=== PATIENT | female | born 1945 | race Two or more races ===

== ENCOUNTER 2021-08-23 14:49 | Inpatient (IN) | payer MEDICARE ==
[~2021-08-23] VITALS: Ht 154.9 cm; Wt 51.2 kg
[~2021-08-23 14:49] MED LIST: VANCOMYCIN 750 MG in IV NORMAL SALINE 250ML 250 ML IV SCH
[2021-08-23] MEDS ORDERED: traMADol 50 MG TABLET PO PRN (17:15)
[2021-08-23] MEDS ORDERED: oxyCODONE/APAP 10/325 1 TAB TABLET PO PRN (17:15)
[2021-08-23] MEDS ORDERED: POLYETHYLENE GLYCOL 3350 17 GM PACKET. PO PRN (17:15)
[2021-08-23] MEDS ORDERED: VANCOMYCIN PER PHARMACY MC PRN (17:15)
[2021-08-23] MEDS ORDERED: PIP/TAZO PER PHARMACY MC PRN (17:15)
[2021-08-23] MEDS ORDERED: MAGNESIUM HYDROXIDE 2,400 MG/30 ML ORAL.SUSP. PO PRN (17:15)
[2021-08-23] MEDS ORDERED: MAG HYDROX/ALUMINUM HYD/SIMETH 30 ML ORAL.SUSP PO PRN (17:15)
[2021-08-23] MEDS ORDERED: hydrOXYzine 25 MG TABLET PO PRN (17:15)
[2021-08-23] MEDS ORDERED: CYCLOBENZAPRINE 10 MG TABLET. PO PRN (17:15)
[2021-08-23] MEDS ORDERED: PSYLLIUM HUSK (SUGAR FREE) 1 PKT PACKET PO PRN (17:15)
[2021-08-23] MEDS ORDERED: METHYL SALICYLATE/MENTHOL TOPICAL CREAM 57GM TUBE. TP PRN (17:15)
[2021-08-23] MEDS ORDERED: PIPERACILLIN/TAZOBACTAM 3.375 GM in IV NORMAL SALINE 50ML 50 ML IV ONE (17:15)
[2021-08-23] MEDS ORDERED: fentaNYL PF VIAL 100 MCG/2 ML VIAL IVP PRN (17:30)
[2021-08-23] MEDS ORDERED: PIPERACILLIN/TAZOBACTAM 4.5 GM in IV DEXTROSE 5% 100ML 100 ML IV SCH (18:00)
[2021-08-23 19:00] VITALS: BP 158/69
[2021-08-23] MEDS: PIPERACILLIN/TAZOBACTAM 3.375 GM in IV NORMAL SALINE 50ML 50 ML IV SCH (19:30)
--- NOTE | 2021-08-23 20:16 | NUR ---
Routine consults called to Dr. Boone, Ortho electrician constructor supervisor, and vascular.
[2021-08-23] MEDS: METOPROLOL TART IMMED RELEASE 50 MG TABLET. PO SCH (20:53)
[2021-08-23] MEDS: POTASSIUM CHLORIDE 20 MEQ TABLET.ER. PO SCH (20:53)
[2021-08-23] MEDS: LACTOBACILLUS RHAMNOSUS GG 1 CAPSULE. PO SCH (20:53)
[2021-08-23] MEDS ORDERED: diphenhydrAMINE 50 MG/ML VIAL IVP PRN (21:15)
[2021-08-23] MEDS ORDERED: VANCOMYCIN 750 MG in IV NORMAL SALINE 250ML 250 ML IV SCH (22:00)
[2021-08-23 23:00] VITALS: BP 137/77
[2021-08-23] MEDS: HYDROCORTISONE SOD SUCC/PF 100 MG/2 ML VIAL. IVP SCH (23:07)
[2021-08-23] MEDS: FAMOTIDINE 20 MG/2 ML VIAL IVP SCH (23:07)
[2021-08-24] MEDS ORDERED: VANCOMYCIN 750 MG in IV NORMAL SALINE 250ML 250 ML IV SCH
[2021-08-24 03:00] VITALS: BP 129/80
[2021-08-24] MEDS: PIPERACILLIN/TAZOBACTAM 3.375 GM in IV NORMAL SALINE 50ML 50 ML IV SCH ×2 (04:19)
[2021-08-24] MEDS: HYDROCORTISONE SOD SUCC/PF 100 MG/2 ML VIAL. IVP SCH ×3 (06:33→22:00)
[2021-08-24 07:00] VITALS: BP 137/86
[2021-08-24] MEDS ORDERED: DEXTROSE 50% 25 GM / 50ML DISP.SYRIN. IV PRN (08:00)
[2021-08-24] MEDS ORDERED: IV DEXTROSE 5% 250 ML BAG. IV PRN (08:00)
[2021-08-24] MEDS: buPROPion XL 150 MG TAB.ER.24H. PO SCH (08:01)
[2021-08-24] MEDS: METOPROLOL TART IMMED RELEASE 50 MG TABLET. PO SCH ×2 (08:01→22:31)
[2021-08-24] MEDS: LACTOBACILLUS RHAMNOSUS GG 1 CAPSULE. PO SCH ×2 (08:01→22:31)
[2021-08-24] MEDS: OMEGA-3 FATTY ACIDS/FISH OIL 1,000 MG CAPSULE. PO SCH ×2 (08:01→15:24)
[2021-08-24] MEDS: POTASSIUM CHLORIDE 20 MEQ TABLET.ER. PO SCH ×3 (08:02→22:31)
[2021-08-24] MEDS: QUEtiapine 25 MG TABLET. PO SCH ×2 (08:02→18:05)
[2021-08-24] MEDS: LISINOPRIL 20 MG TABLET PO SCH (08:02)
[2021-08-24] MEDS: INSULIN LISPRO 300 UNITS/3 ML VIAL. SQ SCH ×3 (08:15→18:09)
--- NOTE | 2021-08-24 08:26 | PDOC2 ---
CONSULT Date of Consult Date of Consult DATE: 08/24/21 TIME: 08:18 Identification/Chief Complaint Chief Complaint Bilateral toe ulcerations History of Present Illness Reason for Visit: Is a very pleasant 76-year-old female who has mal perforans ulcers on the tips of her right and left first toes. These appear clean and have healthy granulation tissue. Patient states that these gradually rubbed from her shoes. She also states that she dropped something on her toes. She has been receiving wound care and primarily changing her dressings at home on her own. She states that they looked much worse than they do now prior to treatment. She was seen a [facility] and then transferred here for evaluation. She states she is prediabetic. Past Medical History Cardiovascular: HTN, Hyperlipidemia CENTRAL NERVOUS SYSTEM: Periperal neuropathy Musculoskeletal: Osteoarthritis Past Surgical History Past Surgical History: Other (Multiple spine surgeries) Family History Family History: Hypertension Social History ALCOHOL: none Drugs: None Lives: with Family Current Medications Current Medications Current Medications Cyclobenzaprine HCl (Flexeril) 10 mg PRN Q8HRS PRN PO MUSCLE SPASMS Last administered on 08/24/21at 08:01; Start 08/23/21 at 17:15 Lactobacillus Rhamnosus (Culturelle) 1 cap BID PO Last administered on 08/24/21at 08:01; Start 08/23/21 at 21:00 Lisinopril (Prinivil) 20 mg DAILY PO Last administered on 08/24/21at 08:02; Start 08/24/21 at 09:00 Al Hydroxide/Mg Hydroxide (Mylanta Plus Xs) 15 ml PRN AFTMEAL PRN PO HEARTBURN / GAS; Start 08/23/21 at 17:15 Magnesium Hydroxide (Milk Of Magnesia) 2,400 mg PRN DAILY PRN PO CONSTIPATION; Start 08/23/21 at 17:15 Menthol/Methyl Salicylate (Bengay Greaseless Cream) 1 mone PRN DAILY PRN TP MUSCLE PAIN; Start 08/23/21 at 17:15 Metoprolol Tartrate (Lopressor) 50 mg BID PO Last administered on 08/24/21at 08:01; Start 08/23/21 at 21:00 Fish Oil (Fish Oil) 1,000 mg BID@0800,1500 PO Last administered on 08/24/21at 08:01; Start 08/24/21 at 08:00 Penicillin G Benzathine (Bicillin L-A) 2,400,000 unit QTH@2100 IM ; Start 08/26/21 at 21:00; Stop 09/02/21 at 21:01 Piperacillin Sod/ Tazobactam Sod (Zosyn Per Pharmacy) 1 each PRN DAILY PRN MC SEE COMMENTS; Start 08/23/21 at 17:15; Stop 08/24/21 at 04:16; Status DC Piperacillin Sod/ Tazobactam Sod 3.375 gm/Sodium Chloride 50 ml @ 100 mls/hr 1X ONCE IV ; Start 08/23/21 at 17:15; Stop 08/23/21 at 17:44; Status UNV Polyethylene Glycol (miraLAX PACKET) 17 gm PRN DAILY PRN PO CONSTIPATION; Start 08/23/21 at 17:15 Potassium Chloride (Klor-Con) 20 meq TID PO Last administered on 08/24/21at 08:02; Start 08/23/21 at 21:00 Psyllium Hydrophilic Mucilloid (Metamucil Fiber Packet) 1 pkt PRN DAILY PRN PO CONSTIPATION; Start 08/23/21 at 17:15 Quetiapine Fumarate (SEROquel) 12.5 mg BIDWMEALS PO Last administered on 08/24/21at 08:02; Start 08/24/21 at 08:00 Vancomycin HCl (Vanco Per Pharmacy) 1 each PRN DAILY PRN MC SEE COMMENTS Last administered on 08/23/21at 17:59; Start 08/23/21 at 17:15; Stop 08/24/21 at 04:16; Status DC Vancomycin HCl 750 mg/Sodium Chloride 250 ml @ 250 mls/hr Q24H IV ; Start 08/23/21 at 22:00; Status Cancel Bupropion HCl (Wellbutrin Xl) 300 mg DAILY PO Last administered on 08/24/21at 08:01; Start 08/24/21 at 09:00 Hydroxyzine HCl (Atarax) 25 mg PRN TID PRN PO ITCHING; Start 08/23/21 at 17:15 Oxycodone/ Acetaminophen (Percocet 10/325) 2 tab PRN Q8HRS PRN PO PAIN Last administered on 08/23/21at 18:17; Start 08/23/21 at 17:15 Tramadol HCl (Ultram) 50 mg PRN Q6HRS PRN PO PAIN Last administered on 08/24/21at 08:07; Start 08/23/21 at 17:15 Fentanyl Citrate (Fentanyl 2ml Vial) 50 mcg PRN Q4HRS PRN IVP PAIN Last administered on 08/23/21at 18:13; Start 08/23/21 at 17:30; Stop 08/24/21 at 04:40; Status DC Piperacillin Sod/ Tazobactam Sod 4.5 gm/Dextrose 100 ml @ 200 mls/hr Q6HRS IV ; Start 08/23/21 at 18:00; Status Cancel Vancomycin HCl (Vancomycin Trough Level) 1 each 1X ONCE MC ; Start 08/23/21 at 21:30; Stop 08/23/21 at 21:31; Status DC Piperacillin Sod/ Tazobactam Sod 3.375 gm/Sodium Chloride 50 ml @ 100 mls/hr Q6 HRS IV ; Start 08/23/21 at 19:30; Stop 08/24/21 at 04:20; Status DC Diphenhydramine HCl (Benadryl) 50 mg PRN Q6HRS PRN IVP ITCHING Last administered on 08/23/21at 21:27; Start 08/23/21 at 21:15 Hydrocortisone Sodium Succinate (Solu-CORTEF) 100 mg Q8HRS IVP Last administered on 08/24/21at 06:33; Start 08/23/21 at 22:00 Famotidine (Pepcid Vial) 20 mg QHS IVP Last administered on 08/23/21at 23:07; Start 08/23/21 at 22:00 Vancomycin HCl 750 mg/Sodium Chloride 250 ml @ 250 mls/hr Q12H IV ; Start 08/23/21 at 00:00; Status Cancel Vancomycin HCl 750 mg/Sodium Chloride 250 ml @ 250 mls/hr Q12H IV ; Start 08/24/21 at 00:00; Stop 08/24/21 at 04:20; Status DC Insulin Human Lispro (HumaLOG) 0-5 UNITS TIDWMEALS SQ Last administered on 08/24/21at 08:15; Start 08/24/21 at 08:00 Dextrose (Dextrose 50%-Water Syringe) 12.5 gm PRN Q15MIN PRN IV SEE COMMENTS; Start 08/24/21 at 08:00; Status UNV Dextrose (Iv Dextrose 5%) 250 ml PRN Q15MIN PRN IV SEE COMMENTS; Start 08/24/21 at 08:00 Allergies Allergies: Coded Allergies: adhesive tape (Verified Allergy, Intermediate, 08/23/21) morphine (Verified Allergy, Intermediate, 08/23/21) procaine (Verified Allergy, Intermediate, 08/23/21) ROS Skin: Yes Other (Bilateral first toe ulcers) Physical Exam General: Alert, Oriented X3, Cooperative HEENT: Atraumatic, PERRLA, EOMI, Mucous membr. 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) Skin: Other (Superficial lesions involving the right and left first toe, healthy granulation tissue, no evidence of bony exposure, no purulent drainage, no cellulitis, no malodor) Neuro: Strength at 5/5 X4 ext, Cranial nerves 3-12 NL, Other (Bilateral peripheral neuropathy) Psych/Mental Status: Mental status NL, Mood NL MUSCULOSKELETAL: No swelling, No muscular tenderness noted, Full range of motion without pain Vitals VITALS Vital Signs Date Time Temp Pulse Resp B/P (MAP) Pulse Ox O2 Delivery O2 Flow Rate FiO2 08/24/21 08:07 Room Air 08/24/21 08:02 89 137/86 08/24/21 03:00 97.9 18 96 97.9 Labs Labs Laboratory Tests Test 08/23/21 21:46 08/23/21 21:55 Glucose (Fingerstick) 264 mg/dL (70-99) Vancomycin Level Trough 7.0 mcg/mL (10.0-20.0) Vancomycin Last Dose Date Vancomycin Last Dose Time 2199 Laboratory Tests Test 08/23/21 21:46 08/23/21 21:55 Glucose (Fingerstick) 264 mg/dL (70-99) Vancomycin Level Trough 7.0 mcg/mL (10.0-20.0) Vancomycin Last Dose Date Vancomycin Last Dose Time 2199 Assessment/Plan Assessment/Plan Bilateral first toe ulcerations--overall the patient's ulcerations appear healthy with good granulation tissue. She has intact arterial blood flow to both lower extremities with palpable pulse exam. There is no evidence of bony exposure. There is no purulent drainage or cellulitis. I have a low suspicion for osteomyelitis of her toes. There are no studies within our system. If th ere is a significant question regarding osteomyelitis, I would recommend a MRI of both feet. I believe local wound care will be sufficient to heal these wounds. Patient can be seen and followed up in the wound care clinic. There is no urgency to any type of surgical therapy at this time. All questions were answered the patient satisfaction at the bedside. I also discussed the plan with the nursing staff at the bedside. I would avoid moist bandages including Xeroform as this does tend to macerate the surrounding skin. Donald Hallman DO, DONALD MARQUES DO Aug 24, 2021 08:26
[2021-08-24 09:41] LABS: BASO % 0 % (0-3); EOS % 0 % (0-3); HEMATOCRIT 32.3 % (36.0-47.0); HEMOGLOBIN 10.4 g/dL (12.0-15.5); LYMPH % 9 % (24-48); MEAN CORPUSCULAR HEMOGLOBIN 28 pg (25-35); MEAN CORPUSCULAR HGB CONC 32 g/dL (31-37); MEAN CORPUSCULAR VOLUME 85 fL (79-100); MONO # 0.1 x10^3/uL (0.0-1.1); MONO % 1 % (0-9); NEUT # 9.7 x10^3/uL (1.8-7.7); NEUT % 89 % (31-73); PLATELET COUNT 324 x10^3/uL (140-400); RED BLOOD COUNT 3.78 x10^6/uL (3.50-5.40); RED CELL DISTRIBUTION WIDTH 13.8 % (11.5-14.5); WHITE BLOOD COUNT 10.8 x10^3/uL (4.0-11.0)
[2021-08-24 09:59] LABS: ALBUMIN 3.3 g/dL (3.4-5.0); ALBUMIN/GLOBULIN RATIO 1.1 (1.0-1.7); C-REACTIVE PROTEIN 93.2 mg/L (0-3.3); CALCIUM 9.1 mg/dL (8.5-10.1); CREATININE 0.9 mg/dL (0.6-1.0); POTASSIUM 4.2 mmol/L (3.5-5.1); TOTAL BILIRUBIN 0.4 mg/dL (0.2-1.0); TOTAL PROTEIN 6.3 g/dL (6.4-8.2)
--- NOTE | 2021-08-24 10:02 | HP ---
DATE OF SERVICE: 08/24/2021 ADMIT DATE: 08/23/2021 HISTORY OF PRESENT ILLNESS: The patient is a 76-year-old female patient who was originally admitted to [facility] as a referral from [facility] in [place] on account of worsening self-care deficit, cursing daughters. She is not taking her medications, soaked in urine and agitated, confused, disoriented with poor intake and loss of weight for about 17 pounds. Her daughter stated there was gradual decline in her mother's ability to take care of herself but over the last 4-6 months she is not cleaning her dishes, she has been soiling herself repeatedly. In March, her son and has refused to talk to her before his . She also has developed bilateral great toe diabetic foot ulcers, which she has declined to care for. She was seen by Dr. Chele Aguilar, who ordered bilateral arterial Doppler ultrasound, but the patient refused to continue with care. She was in fact admitted to [facility] for inpatient psychiatric stabilization and we did actually an x-ray of her both feet, which showed that the patient has no fracture or bony destruction of the right big toe; however, she does have erosions with bony destruction of the tuft of the distal phalanx of the left great toe suggestive of osteomyelitis and the patient therefore transferred to [address] [place] [address] and started her on IV antibiotic in the form of vancomycin and Zosyn and I did manage to get a copy of the arterial Doppler ultrasound done at [facility]. The arterial Doppler ultrasound showed the patient has moderate degree of scattered plaque throughout the arterial system of the right lower extremity. There is occlusion of the mid superficial femoral artery. The right superficial femoral artery with reconstitution of flow in the distal superficial femoral artery. She has monophasic arterial waveforms within the distal superficial femoral artery throughout the dorsalis pedis. She does have also elevated peak systolic velocity within the right common femoral artery at 335.3 cm per second. She also has moderate degree of scattered plaque throughout the arterial system of the left lower extremity; however, she has no significant arterial stenosis in the left lower extremity and given she has osteomyelitis of the distal left big toe, the patient was transferred to [facility] to consult the Infectious Disease specialist as well as the vascular surgeon and perhaps the orthopedic surgeon. The patient does complain of pain in her feet and she is getting tramadol and oxycodone; however, last night, she wanted also IV pain medication. We did give her fentanyl and she somehow developed a generalized pruritic rash therefore I stopped all the fentanyl as well as IV antibiotic and was treated symptomatically with hydrocortisone, Benadryl and Pepcid. PAST MEDICAL HISTORY: Significant for chronic back pain, hypertension, diabetic polyneuropathy, diabetes mellitus, recurrent falls. She also has possible peripheral arterial disease. PAST SURGICAL HISTORY: Unremarkable. ALLERGIES: SHE IS ALLERGIC TO MORPHINE AND NOVOCAIN WELL TAPE. CODE STATUS: Full. DIET: She is in a regular ADA diet. FAMILY HISTORY: Positive for Alzheimer's disease in her mother. SOCIAL HISTORY: The patient lives alone. She has 3 daughters. She does not smoke, drink alcohol or use recreational drugs. MEDICATIONS: She was transferred to 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 She was also on Wellbutrin-XL 300 mg daily, lisinopril 20 mg once a day. She is on Humalog insulin as insulin sliding scale before meals, quetiapine fumarate 12.5 mg twice a day, fish oil 1000 mg once a day, famotidine 20 mg IV once a day, hydrocortisone sodium 100 mg every 8 hours, diphenhydramine 50 mg IV every 6 hours, potassium chloride 20 mEq 3 times a day, metoprolol tartrate 50 mg twice a day, Lactobacillus rhamnosus 1 capsule twice a day, tramadol 50 mg every 6 hours, oxycodone/acetaminophen one tablet every 8 hours, hydroxyzine 25 mg 3 times a day, Metamucil 1 packet daily, polyethylene glycol 17 grams daily p.r.n. for constipation. She is also on Bengay applied topically as needed, milk of magnesia 30 mL daily p.r.n. for constipation, Mylanta 15 mL after meals and as needed, cyclobenzaprine 10 mg every 8 hours as needed. She was also on vancomycin 750 mg every 12 hours and piperacillin/tazobactam 3.375 grams IV every 6 hours. She developed severe erythematous pruritic skin rash after she received the fentanyl, although the action did not happen immediately. I was not sure as to what has caused the allergy and therefore, I held all the antibiotics as well as her fentanyl. PHYSICAL EXAMINATION: GENERAL: When I examined her this morning, she was resting slightly propped up in bed, in no apparent respiratory distress. She was somewhat pale, but not jaundiced or cyanosed. No lymphadenopathy, no thyromegaly, no jugular venous distention. No lower limb edema. VITAL SIGNS: Her heart rate was 89, blood pressure was 137/86, temperature 97.9, respiratory rate was 18 and oxygen saturation was 96% on room air. HEAD, EYES, EARS, NOSE, AND THROAT: Normocephalic, atraumatic. NECK: Supple. HEART: Showed normal first and second heart sounds. No gallop or murmur. CHEST: Clear to auscultation, no crepitation or rhonchi. ABDOMEN: Scaphoid, soft, nontender. NEUROLOGIC: She was awake, alert, responding appropriately. All cranial nerves intact. She moves extremities without difficulty. She has wounds in big toes, both feet are covered with dressing. The erythematous skin rash has completely resolved when I saw her this morning. LABORATORY DATA: Her most recent lab work showed a white cell count 9700, hemoglobin 11, hematocrit 33, MCV 87 and platelet count of 331,000. Serum sodium was 139, potassium 4.1, chloride 106, bicarbonate 25, anion gap of 8, BUN 20, creatinine 0.7. Estimated GFR was 81 mL per minute. Her glucose 176, calcium was 8.8. Total bilirubin, AST, ALT, alkaline phosphatase were normal. Total protein was 6.2, albumin was 3.1. The x-ray of her both toe showed that the patient has no fracture or bony destruction. The right great toe has erosions with bony destruction at the tuft, distal phalanx of the left great toe suggestive of osteomyelitis. She was treated with IV antibiotic at [facility]; however, because of the allergic reaction last night, I held the antibiotic as well as IV fentanyl. I have consulted the Infectious Disease specialist, the vascular surgeon as well as orthopedic surgeon. We will decide the further management accordingly. MORGAN/LEONARDA JAIN: Gómez TID: [id number]
[2021-08-24 11:00] VITALS: BP 139/69
[2021-08-24 15:00] VITALS: BP 176/80
[2021-08-24] MEDS: AMOXICILLIN/K CLAV 875/125MG TABLET. PO SCH ×2 (15:23→22:30)
[2021-08-24] MEDS: traMADol 50 MG TABLET PO PRN ×2 (15:24→19:33)
[2021-08-24 19:00] VITALS: BP 131/65
[2021-08-24] MEDS: FAMOTIDINE 20 MG/2 ML VIAL IVP SCH (22:30)
[2021-08-24 23:00] VITALS: BP 135/72
[2021-08-25] VITALS (7 sets, daily range): BP systolic 121–185; BP diastolic 67–91
--- NOTE | 2021-08-25 02:11 | CONS ---
DATE OF CONSULTATION: 08/24/2021 REQUESTING PHYSICIAN: Nay Goldsmith MD REASON FOR CONSULTATION: Toe wound, question osteomyelitis. HISTORY OF PRESENT ILLNESS: This is a 76-year-old female who was transferred from [facility]. The patient was admitted to [facility]. She came from [facility] in [place]. The patient apparently started having toe problem. The patient was seen by primary care and was put on some . The patient says it gotten worse, hence then she went to the hospital. Then from [place] the patient was transferred to [facility] and the patient was then seen by Dr. Goldsmith for this wound and started on antibiotics. The patient's erosion of the bone destruction of the tuft of the distal phalanx on the x-ray suggestive of osteomyelitis, hence the patient was transferred here. The patient does have dorsalis pedis weak, but palpable. The patient denies any fever, denies any nausea, vomiting, diarrhea, chest pain, shortness of breath, abdominal pain, urinary symptoms or bowel symptoms. PAST MEDICAL HISTORY: Positive for hypertension, diabetes, diabetic neuropathy, chronic back problem. SOCIAL HISTORY: Negative for smoking, alcohol, illicit drug use. ALLERGIES: No known drug allergies. CURRENT MEDICATIONS: Reviewed. REVIEW OF SYSTEMS: As in HPI. All other systems reviewed are negative. PHYSICAL EXAMINATION: GENERAL: Alert, oriented female, not in any distress. VITAL SIGNS: Stable, afebrile. HEENT: NAD. NECK: Supple, no JVP, no lymphadenopathy. LUNGS: Clear. HEART: S1, S2, regular. ABDOMEN: Soft, nontender, no organomegaly. EXTREMITIES: No edema, cyanosis. SKIN: Unremarkable. The patient's left big toe has some loss of tissue, but this all looks clean. There is no tunneling. There is no deep wound to the bone. There is no clinical evidence for osteomyelitis and even the wound is clean enough that it is not showing any signs of infection. Right big toe also has a small distal part that is gone with ulcer, which is not deep enough to have an osteomyelitis or any tunneling. LABORATORY DATA: White count is 10,000. ESR is 21. BUN and creatinine is normal. IMPRESSION: Right and left both big toe ulcers. No clinical evidence for osteomyelitis and no even right now evidence for any infection, may have improved some redness or drainage that has been reported from the antibiotics. RECOMMENDATIONS: I would change antibiotics to p.o. Augmentin for possible discharge. Thank you very much, Dr. Goldsmith, for giving me opportunity to participate in this patient's care. LUDMILA/CECY/JARVIS DR: LUDMILA/cristino TID: [id number]
[2021-08-25] MEDS: HYDROCORTISONE SOD SUCC/PF 100 MG/2 ML VIAL. IVP SCH (05:59)
[2021-08-25] MEDS: traMADol 50 MG TABLET PO PRN ×3 (06:05→20:18)
[2021-08-25] MEDS: QUEtiapine 25 MG TABLET. PO SCH ×2 (08:00→17:09)
[2021-08-25] MEDS: buPROPion XL 150 MG TAB.ER.24H. PO SCH (08:51)
[2021-08-25] MEDS: AMOXICILLIN/K CLAV 875/125MG TABLET. PO SCH ×2 (08:52→20:10)
[2021-08-25] MEDS: LACTOBACILLUS RHAMNOSUS GG 1 CAPSULE. PO SCH ×2 (08:52→20:10)
[2021-08-25] MEDS: POTASSIUM CHLORIDE 20 MEQ TABLET.ER. PO SCH ×3 (08:52→20:10)
[2021-08-25] MEDS: METOPROLOL TART IMMED RELEASE 50 MG TABLET. PO SCH ×2 (08:53→20:09)
[2021-08-25] MEDS: OMEGA-3 FATTY ACIDS/FISH OIL 1,000 MG CAPSULE. PO SCH ×2 (08:53→13:11)
[2021-08-25] MEDS: LISINOPRIL 20 MG TABLET PO SCH (08:53)
[2021-08-25] MEDS: INSULIN LISPRO 300 UNITS/3 ML VIAL. SQ SCH ×3 (08:58→17:00)
--- NOTE | 2021-08-25 09:00 | PDOC ---
Provider Note Date of Service: DATE: 08/25/21 TIME: 08:54 Provider Note Provider Note Vascular: Attempted to see pt a couple time this am and she was in the bathroom/not available/out of room. Please see Dr. Hallman consultation from yesterday for details. She has bilateral toe wounds that are clean and do not need debridement at this time. I reviewed her duplex from outside facility and discussed with Dr. Hallman. She has elevated PSV of right common femoral artery of 335.3 cm/s, short segment occlusion of the mid SFA with reconstitution of flow in the distal right SFA with peak systolic velocity of 227.9 cm/s. Monophasic flows distally. Left leg with diffuse scattered disease with less significant findings. Her duplex is on her chart. I have also faxed this to our office to have in our EMR records. I discussed with Dr. Hallman, she did have palpable DP pulses, therefore there is no urgency but we will see her in follow-up for ABIs and further evaluation regarding her circulation. I will arrange this follow-up in 3-4 weeks and we will plan to see her then. There is no indication for further vascular work-up or intervention acutely while she is an inpatient. We will sign off and see in follow-up. Please call with further questions or concerns. Justicifation of Admission Dx: Justifications for Admission: Justification of Admission Dx: Comment: (per hospitalist) MICKI DOUGLAS Aug 25, 2021 09:00
[2021-08-25] MEDS: ASCORBIC ACID 500 MG TABLET PO SCH (10:31)
[2021-08-25] MEDS: MULTIVITAMIN with MINERAL TABLET. PO SCH (10:31)
--- NOTE | 2021-08-25 12:26 | PDOC ---
Infectious Disease Note Subjective Subjective pt is feeling good ROS ROS no n/v/d/sob Vital Sign Vital Signs Vital Signs Date Time Temp Pulse Resp B/P (MAP) Pulse Ox O2 Delivery O2 Flow Rate FiO2 08/25/21 11:00 98.1 92 18 142/88 (106) 98 Room Air 98.1 Physical Exam PHYSICAL EXAM GENERAL: Alert, oriented female, not in any distress. VITAL SIGNS: Stable, afebrile. HEENT: NAD. NECK: Supple, no JVP, no lymphadenopathy. LUNGS: Clear. HEART: S1, S2, regular. ABDOMEN: Soft, nontender, no organomegaly. EXTREMITIES: No edema, cyanosis. SKIN: Unremarkable. The patient's left big toe has some loss of tissue, but this all looks clean. There is no tunneling. There is no deep wound to the bone. There is no clinical evidence for osteomyelitis and even the wound is clean enough that it is not showing any signs of infection. Right big toe also has a small distal part that is gone with ulcer, which is not deep enough to have an osteomyelitis or any tunneling. Labs Lab Laboratory Tests Test 08/24/21 12:41 08/24/21 17:44 08/25/21 08:52 08/25/21 11:31 Glucose (Fingerstick) 215 mg/dL (70-99) 189 mg/dL (70-99) 303 mg/dL (70-99) 582 mg/dL (70-99) Micro Microbiology 08/24/21 Gram Stain - Final, Resulted 08/24/21 Aerobic and Anaerobic Culture - Preliminary, Resulted Objective Assessment IMPRESSION: Right and left both big toe ulcers. No clinical evidence for osteomyelitis and no evidence for any infection now, may have improved some redness or drainage that has been reported from the antibiotics. Latent syphilis HTN DM with neuropathy Plan Plan of Care po antibiotics ok to d/c MAYDA ZARATE MD Aug 25, 2021 12:26
[2021-08-25] MEDS ORDERED: INSULIN LISPRO 300 UNITS/3 ML VIAL. SQ SCH (13:00)
[2021-08-25] MEDS ORDERED: INSULIN LISPRO 300 UNITS/3 ML VIAL. SQ ONE (13:15)
[2021-08-25] MEDS: FAMOTIDINE 20 MG/2 ML VIAL IVP SCH (20:10)
[2021-08-26] VITALS (7 sets, daily range): BP systolic 146–168; BP diastolic 73–108
[2021-08-26] MEDS: buPROPion XL 150 MG TAB.ER.24H. PO SCH (08:32)
[2021-08-26] MEDS: MULTIVITAMIN with MINERAL TABLET. PO SCH (08:32)
[2021-08-26] MEDS: ASCORBIC ACID 500 MG TABLET PO SCH (08:32)
[2021-08-26] MEDS: POTASSIUM CHLORIDE 20 MEQ TABLET.ER. PO SCH ×3 (08:33→20:50)
[2021-08-26] MEDS: OMEGA-3 FATTY ACIDS/FISH OIL 1,000 MG CAPSULE. PO SCH ×2 (08:33→14:53)
[2021-08-26] MEDS: LISINOPRIL 20 MG TABLET PO SCH (08:34)
[2021-08-26] MEDS: LACTOBACILLUS RHAMNOSUS GG 1 CAPSULE. PO SCH ×2 (08:34→20:49)
[2021-08-26] MEDS: METOPROLOL TART IMMED RELEASE 50 MG TABLET. PO SCH ×2 (08:35→20:50)
[2021-08-26] MEDS: AMOXICILLIN/K CLAV 875/125MG TABLET. PO SCH ×2 (08:35→20:49)
[2021-08-26] MEDS: QUEtiapine 25 MG TABLET. PO SCH ×2 (08:37→17:00)
[2021-08-26] MEDS: traMADol 50 MG TABLET PO PRN ×2 (08:44→17:17)
[2021-08-26] MEDS: INSULIN LISPRO 300 UNITS/3 ML VIAL. SQ SCH ×3 (08:56→17:28)
--- NOTE | 2021-08-26 13:50 | PDOC ---
Infectious Disease Note Subjective Subjective pt is feeling good ROS ROS no n/v/d/ Vital Sign Vital Signs Vital Signs Date Time Temp Pulse Resp B/P (MAP) Pulse Ox O2 Delivery O2 Flow Rate FiO2 08/26/21 11:00 98.0 72 16 146/88 (107) 98 Room Air 98.0 Physical Exam PHYSICAL EXAM GENERAL: Alert, oriented female, not in any distress. VITAL SIGNS: Stable, afebrile. HEENT: NAD. NECK: Supple, no JVP, no lymphadenopathy. LUNGS: Clear. HEART: S1, S2, regular. ABDOMEN: Soft, nontender, no organomegaly. EXTREMITIES: No edema, cyanosis. SKIN: Unremarkable. The patient's left big toe has some loss of tissue, but this all looks clean. There is no tunneling. There is no deep wound to the bone. There is no clinical evidence for osteomyelitis and even the wound is clean enough that it is not showing any signs of infection. Right big toe also has a small distal part that is gone with ulcer, which is not deep enough to have an osteomyelitis or any tunneling. Labs Lab Laboratory Tests Test 08/25/21 16:53 08/25/21 20:39 08/26/21 07:36 08/26/21 10:56 Glucose (Fingerstick) 73 mg/dL (70-99) 201 mg/dL (70-99) 177 mg/dL (70-99) 200 mg/dL (70-99) Micro Microbiology 08/24/21 Gram Stain - Final, Resulted 08/24/21 Aerobic and Anaerobic Culture - Preliminary, Resulted Objective Assessment IMPRESSION: Right and left both big toe ulcers. No clinical evidence for osteomyelitis and no evidence for any infection now, may have improved some redness or drainage that has been reported from the antibiotics. Latent syphilis HTN DM with neuropathy Plan Plan of Care po antibiotics ok to d/c MAYDA ZARATE MD Aug 26, 2021 13:50
--- NOTE | 2021-08-26 14:00 | NUR ---
Wound/Ostomy Care Wound Type/Assessment: Patient seen per wound care follow up. See wound assessment. Patient was in at [facility] by wound care previously. Patient has DFU to the right great toe and to the left great toe. Wounds cleansed, assessed, measured, and pictured. Patient is refusing to allow wound care to apply any type of recommended dressing, other than gauze pads and tape. Patient is from [facility] and will be returning following discharge from hospital. Treatment Recommendations/Plan: Recommendations for Iodoflex and cover with gauze and tape. Change every 2-3 days. However patient again refusing. So wounds redressed with gauze and tape only per her request. RN notified. Education provided: Patient educated on wound care dressing changes and dressings, but refusing information at this time. Patient also stated she likes to "walk around bare footed with grandchildren" when she is at home. We explained to patient the risks of being diabetic and walking around without the proper foot russell and patient again refusing to allow any education. Offloading surface/device: Patient is ambulatory and does not wish to inquire about diabetic foot wear. Recommended Referrals/Tests: N/A Discharge Recommendations for dressings: Dressing change instructions left in room. Wound care will sign off at this time as patient does want wound care and will be discharging to [facility]. Wound care will follow up there if needed next week. RN at bedside to continue care.
--- NOTE | 2021-08-26 19:51 | NUR ---
Report called to Yas at [facility] [phone]. Informed her of follow up appointments,Vascular surgery follow up: 09/22/21 at 8:50 am for GODFREY's to assess circulation in legs first, then office visit with Dr. Hallman to follow. [id number] [address], [place] [id number]. [phone]. Yas stated she would place on discharge info sheet upon Patient admitting today. Yas denies any questions, Yas aware of transport by [facility] scheduled for 2129.
[2021-08-26] MEDS: FAMOTIDINE 20 MG/2 ML VIAL IVP SCH (20:51)
[2021-08-26] MEDS ORDERED: PENICILLIN G BENZATHINE LA 2,400,000 UNIT/4 ML DISP.SYRIN. IM SCH (21:00)
--- NOTE | 2021-08-26 21:15 | NUR ---
Patient informed of transfer to [place], [place] lock out. HS medications given. Patient understands transfer. [facility] here and transporting Patient with all belongings to transfer to [place]. Yas at [place] informed Patient on way to [place], and that night medications given. Addendum: 08/26/21 at 2208 by ROLAN WORLEY RN Transfer packet given to transport person.
--- NOTE | 2021-08-26 21:20 | NUR ---
Call to Yas to inform her Night medications given.
--- NOTE | 2021-08-27 10:42 | PN ---
DATE: 08/26/2021 SUBJECTIVE: The patient is resting, slightly propped up in bed, in no apparent distress. On questioning her, denied any complaint. The nursing staff did not voice any concerns. She states that she had an uneventful night. She was accepted to be discharged back to [facility]; however, we are waiting for the COVID-19 by PCR before she can be transferred there. OBJECTIVE: GENERAL: When I questioning her, she feels generally well. Denied any complaint. When I examined her, she was pale, cachectic. No jaundice, cyanosis or thyromegaly. No jugular venous distention. No lower limb edema. VITAL SIGNS: Her heart rate was 90, blood pressure was 155/97, temperature was 98, respiratory rate was 18 and oxygen saturation was 98% on room air. HEAD, EYES, EARS, NOSE, AND THROAT: Normocephalic, atraumatic. NECK: Supple. HEART: Normal first and second heart sounds. No gallop, rub or murmur. CHEST: Clear to auscultation, no crepitation or rhonchi. ABDOMEN: Scaphoid, soft, nontender. NEUROLOGIC: She was grossly intact. She does have wounds on both big toes; however, there is no evidence of osteomyelitis. She was seen in consultation, both by the Infectious Disease specialist and also the vascular surgeon. She was started on oral Augmentin for infection with the toes and the vascular surgeon did not recommend any intervention for the time being. LABORATORY DATA: Showed a white cell count of 10,800, hemoglobin 10, hematocrit 32, MCV 85 and platelet count of 324,000. Her chemistry showed a serum sodium of 138, potassium 4.2, chloride 103, bicarbonate 24, anion gap of 11, BUN 20, creatinine 0.9. Estimated GFR was 61 mL per minute. Her glucose was 117, calcium was 9.1. Total bilirubin, AST, ALT, alkaline phosphatase were normal. C-reactive protein was 93. Total protein was 6.3, albumin was 3.3. ASSESSMENT: 1. Bilateral big toe infection without evidence of osteomyelitis. 2. Peripheral vascular disease. 3. Hypertension. 4. Diabetic polyneuropathy. 5. Chronic back pain. PLAN: Obviously to wait for the results of PCR. If it is negative, the patient can be discharged to [facility] at [facility]. MORGAN/KIT/AMI DR: Gómez TID: [id number]
== END 2021-08-26 21:15 | disposition short-term general hospital (02) | DRG 300 ==
LOC: 4 NORTH 14:49
PROVIDERS: ADMIT Internal Medicine; ATTEND Internal Medicine
DX: E11.51 Type 2 diabetes mellitus with diabetic peripheral angiopathy without gangrene (principal); E44.0 Moderate protein-calorie malnutrition; E11.42 Type 2 diabetes mellitus with diabetic polyneuropathy; E11.621 Type 2 diabetes mellitus with foot ulcer; L97.529 Non-pressure chronic ulcer of other part of left foot with unspecified severity; L97.519 Non-pressure chronic ulcer of other part of right foot with unspecified severity; A53.0 Latent syphilis, unspecified as early or late; E78.5 Hyperlipidemia, unspecified; G89.29 Other chronic pain; I10 Essential (primary) hypertension; L08.9 Local infection of the skin and subcutaneous tissue, unspecified; Z82.0 Family history of epilepsy and other diseases of the nervous system; Z82.49 Family history of ischemic heart disease and other diseases of the circulatory system; M19.90 Unspecified osteoarthritis, unspecified site; Z88.5 Allergy status to narcotic agent; Z60.2 Problems related to living alone; Z20.822 Contact with and (suspected) exposure to COVID-19
CPT/HCPCS: 36415; 80053; 80202; 82962; 85025; 85651; 86140; 87075; 87077; 87186; J0561; J1200; J1720; J1815; J3010; J3490; U0003; G0378